=== PATIENT | female | born 2000 | race Two or more races ===

== ENCOUNTER 2018-07-29 19:24 | Emergency (ER) | payer OTHER ==
[2018-07-29 19:42] VITALS: BP 123/73
--- NOTE | 2018-07-29 19:51 | UC ---
Ear Complaint HPI - HPI Summary HPI Summary: 17 y/o female presents to the urgent care c/o B/L ear pain since this afternoon around 1530 pm when she went swimming. Pt reports she went into the water and she immediately to the felt pain. Pt is 6/10 w/o any radiation. She took a Tylenol about 2hrs ago w/o any improvement. Pt denies fever, dizziness, decrease hearing, SOB, URI, chest pain,abdominal pain, N/V/D. Pt is PCN and cephalosporins allergic. Pt is UTD w/ all vaccines for her age. - History of Current Complaint Chief Complaint: UCEar Stated Complaint: EAR PAIN Time Seen by Provider: 07/29/18 19:49 Hx Obtained From: Patient Hx Last Menstrual Period: 07/22/2018 ?: No Onset/Duration: Gradual Onset, Lasting Days - 1 day, Still Present Severity Initially: Moderate Severity Currently: Moderate Pain Intensity: 6 Pain Scale Used: 0-10 Numeric Aggravating Factors: Nothing Alleviating Factors: OTC Meds Associated Signs/Symptoms: Negative: Discharge, Hearing Loss, Foreign Body Sensation, Swelling @ - Allergies/Home Medications Allergies/Adverse Reactions: Allergies Allergy/AdvReac Type Severity Reaction Status Date / Time Cephalosporins Allergy Anaphylatic Verified 07/29/18 19:36 Shock Penicillins Allergy Anaphylatic Verified 07/29/18 19:36 Shock Home Medications: Home Medications Acetaminophen TAB* [Tylenol TAB*] 650 mg PO Q8HR PRN 07/29/18 [History Confirmed 07/29/18] Bcp 1 tab PO DAILY 07/29/18 [History] PMH/Surg Hx/FS Hx/Imm Hx Previously Healthy: Yes - Pt denies PMHX - Surgical History Surgical History: Yes Surgery Procedure, Year, and Place: Fallopian tumor removal 2010. leg lengthening surgery 2010 - Family History Known Family History: Positive: None - Pt denies FMHX - Social History Occupation: Student Lives: With Family Alcohol Use: Weekly Substance Use Type: None Smoking Status (MU): Never Smoked Tobacco - Immunization History Vaccination Up to Date: Yes Review of Systems Constitutional: Negative Skin: Negative Eyes: Negative ENT: Negative, Ear Ache - B/L ear pain Respiratory: Negative Cardiovascular: Negative Gastrointestinal: Negative Genitourinary: Negative Motor: Negative Neurovascular: Negative Musculoskeletal: Negative Neurological: Negative Psychological: Negative Is Patient Immunocompromised?: No All Other Systems Reviewed And Are Negative: Yes Physical Exam - Summary Physical Exam Summary: Vital signs: reviewed General: well developed, well nourished female adoelscent sitting in the examining table w/o any apparent distress Skin: [place], warm and dry, no evidence of atopic dermatitis, psoriasis, seborrhea. HEENT: -Head: atraumatic, non tender; no scalp dermatitis. -Eyes: sclera and conjunctiva clear, PERRLA, EOMI -Ears: no pre- or postauricular lymphadenopathy or erythema; B/L external ear canals clear. B?L TM injected w/ erythema and Rt w/ yellowish discharge, No perforation. -Nose/Face: erythematous and edematous nasal mucosa with clear rhinorrhea, no frontal or maxillary sinus tender to palpation. -Mouth/Throat: Mucous membrane moist, posterior pharynx clear, no erythema or exudates. Neck: supple, FROM, nontender, no lymphadenopathy, no meningismus. Chest: Clear to auscultation, normal breath sounds Abd: soft, Bowel sounds active, Nontender. Back: no spinal or CVAT Neuro: A&O x4, GCS 15, no focal neuro deficits, normal behavior for age. Triage Information Reviewed: Yes Vital Signs: Initial Vital Signs Temp 97.9 F 07/29/18 19:35 Pulse 99 07/29/18 19:35 Resp 18 07/29/18 19:35 BP 123/73 07/29/18 19:35 Pulse Ox 99 07/29/18 19:35 Ear Complaint Course/Dx - Course Course Of Treatment: 17 y/o female presents to the urgent care c/o B/L ear pain since this afternoon around 1530 pm when she went swimming. Pt reports she went into the water and she immediately to the felt pain. Pt is 6/10 w/o any radiation. She took a Tylenol about 2hrs ago w/o any improvement. Pt denies fever, dizziness, decrease hearing, SOB, URI, chest pain,abdominal pain, N/V/D. Pt is PCN and cephalosporins allergic. Pt is UTD w/ all vaccines for her age. Hx obtained. Pt w/ B/L otitis media on examination. Pt PCN allergic. Pt given first dose of Azitromycin PO and Ibuprofen PO at the clinic to alleviate symptoms. pt tolerated well medication. Same medications sent to pharmacy. Pt advised if not improvement of symptoms in 2-3 days to return to the clinic or f/ u w/ her PCP for further treatment. Pt understood and agreed w/ plan of care. - Differential Dx/Diagnosis Differential Diagnosis/HQI/PQRI: Cerumen Impaction, Otitis Externa, Otitis Media , Perforated TM, URI Provider Diagnoses: 1- B/L otitis media. 2- Otalgia Discharge - Sign-Out/Discharge Documenting (check all that apply): Patient Departure - D/c home All imaging exams completed and their final reports reviewed: No Studies - Discharge Plan Condition: Stable Disposition: HOME Prescriptions: Azithromycin TAB* [Zithromax TAB (Z-ROCCO) 250 mg #6 tabs] 250 mg PO DAILY #4 tab Ibuprofen TAB* [Motrin TAB* 600 MG] 600 mg PO Q6H PRN #30 tab PRN Reason: otalgia Patient Education Materials: Ear Infection (ED) Referrals: [facility] [Outside] Additional Instructions: 1- Please take the full course of the antibiotic to avoid resistance. First dose given tonight at the cli 2-Please take ibuprofen PO q6-8hrs prn as instructed after meals to alleviate pain and swelling. Increase fluid intake, eat well, rest and avoid strenuous exercise 3-If symptoms do not improve or worsen please return to the urgent care or f/u with your PCP in 2 days for further evaluation and treatment. - Billing Disposition and Condition Condition: STABLE Disposition: Home
[2018-07-29] MEDS ORDERED: Azithromycin TAB* 250 MG PO ONE (20:13)
[2018-07-29] MEDS ORDERED: Ibuprofen TAB* 600 MG PO ONE (20:14)
== END 2018-07-29 20:30 | disposition home or self-care (01) ==
LOC: UCEAST 19:24
DX: H66.93 Otitis media, unspecified, bilateral (principal); Z88.1 Allergy status to other antibiotic agents; Z88.0 Allergy status to penicillin
CPT/HCPCS: 99202; A9270-GY; G0463

== ENCOUNTER 2020-01-10 11:16 | Emergency (ER) | payer OTHER ==
--- OUTSIDE RECORDS SUMMARY | 2020-01-10 11:41 | XMS REPORT | Continuity of Care Document ---
:2000 Author Organization [facility] Address [address] [facility] [address] [place] [address] Phone Care Team Providers Name Role Phone Bree Jarrett MD Unavailable Unavailable Allergies, Adverse Reactions, Alerts Substance Reaction Status PENICILLIN rash on face Active Medications Medication Instructions Dosage Effective Dates Status Comments (start - stop) Ikettarmando (28) take 1 tablet by 1.00 tablet - Active !! 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 [address] [facility] Womens Electric Arc Welder [address] [facility], At [facility] [address], [address], , [place], [place], [address], [place], [address], [place]. [place] tel: tel:[phone] PREV VISIT [facility] Pelvic and Regard Referring EST AGE [facility] perineal [address]. Provider: 18-39 Health Womens Electric Arc Welder painDysmenorrheaC 9 40 [facility], At [facility] Regard, [address] [facility] unspecified [address] [facility] [address], [address], [address], painOral , [place], [place], [place], [place]ptive [address], [place], [address]. [place], [address], [place]. tel: [place] surveillanceEncnt tel: [phone] tel:[phone] r for obstetrics gynecology physician exam [id number] (general) (routine) w/o abn findingsInfarctio n, fallopian tube Family History Family Member Diagnosis Age At Onset No information Immunizations Vaccine Date Status Comments No information Payers Payer name Insurance type Covered green party ID Authorization(s) AETNA PPO CI [id number] Social History Type Description Quantity Date Captured Comments Alcohol Use Details Unknown Caffeine Use Details Unknown Tobacco Use Status Unknown Smoking Status Unknown Sex Female Vital Signs Date / Height Weight BMI Pulse Blood Temperature Respiratory Body Head BMI Pulse Inhaled Time: Rate Pressure Rate Surface Circumference percentile Ox Ox Area No information Chief Complaint And Reason For Visit No information Reason For Referral Reason For Referral No information Plan Of Treatment Date Type Action Status No information History Of Present Illness Encounter Date Complaint History Of Present Illness No information Functional Status Date Functional Assessment No information Medications Administered Medication Instructions Dosage Effective Dates (start - stop) Status Comments No information Instructions Date Instruction Additional Information No information Assessments Type Assessment Date No information Goals Health Concern Goal Type Priority Status Date No information Medical Equipment Description Device [place] Device Identifier Effective Dates (start - stop ) Status No information Mental Status Date Cognitive Assessment No information Health Concerns Observation Date No information Concern Status Date No information
--- OUTSIDE RECORDS SUMMARY | 2020-01-10 11:41 | XMS REPORT | Continuity of Care Document ---
:2000 Author Organization [facility] Address [address] [facility] [address] [place] [address] Phone Care Team Providers Name Role Phone Bree Jarrett MD Unavailable Unavailable Allergies, Adverse Reactions, Alerts Substance Reaction Status PENICILLIN rash on face Active Medications Medication Instructions Dosage Effective Dates Status Comments (start - stop) Ikettarmando (28) take 1 tablet by 1.00 tablet - Active !! 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 [facility] Womens Retirement Plan Counselor 9 [address] [facility], At [facility] [address], [address], , [place], [place], [address], [place], [address], [place]. [place] tel: tel:[phone] PREV VISIT [facility]vic and Regard Referring EST AGE [facility] perineal [address]. Provider: 18-39 Health Womens Retirement Plan Counselor painDysmenorrheaC 9 40 [facility], At [facility] [place], [facility] Regard, [address] [facility] unspecified [address] [facility] [address], [address], [address], [place]Oral , [place], [place], [place], [place] [address], [place], [address]. [place], [address], pill [place]. tel: [place] surveillanceEncnt tel: [phone] tel:[phone] r for sales performance manager exam [id number] (general) (routine) w/o abn findingsInfarctio n, fallopian tube Family History Family Member Diagnosis Age At Onset No information Immunizations Vaccine Date Status Comments No information Payers Payer name Insurance type Covered democrat ID Authorization(s) AETNA PPO CI [id number] Social History Type Description Quantity Date Captured [...] Date No information Medical Equipment Description Device [place] Device Identifier Effective Dates (start - stop ) Status No information Mental Status Date Cognitive Assessment No information Health Concerns Observation Date No information Concern Status Date No information
--- OUTSIDE RECORDS SUMMARY | 2020-01-10 11:41 | XMS REPORT | Continuity of Care Document ---
:2000 Author Organization [facility] Address [address] [facility] [address] [place] [address] Phone Care Team Providers Name Role Phone Regard Bree SPENCER Unavailable Unavailable Allergies, Adverse Reactions, Alerts Substance Reaction Status PENICILLIN rash on face Active Medications Medication Instructions Dosage Effective Dates Status Comments (start - stop) Ikettarmando (28) take 1 tablet by 1.00 tablet - Active !! 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 [facility] Womens Oiler Bander [address] [facility], At [facility] [address], [address], , [place], [place], [address], [place], [address], [place]. [place] tel: tel:[phone] PREV VISIT [facility] Regard Referring EST AGE [facility] perineal [address]. Provider: 18-39 Health Womens Oiler Bander painDysmenorrheaC 9 40 [facility], At [facility] Regard, [address] [facility] unspecified [address] [facility] [address], [address], [address], [place]Oral , [place], [place], [place], [place] [address], [place], [address]. [place], [address], pill [place]. tel: [place] surveillanceEncnt tel: [phone] tel:[phone] r for reroller hand exam [id number] (general) (routine) w/o abn findingsInfarctio n, fallopian tube Family History Family Member Diagnosis Age At Onset No information Immunizations Vaccine Date Status Comments No information Payers Payer name Insurance type Covered alliance party ID Authorization(s) AETNA PPO CI [id number] Social History Type Description Quantity Date Captured Comments Sex Female Vital Signs Date / Height [...] Date No information Medical Equipment Description Device [place] Device Identifier Effective Dates (start - stop ) Status No information Mental Status Date Cognitive Assessment No information Health Concerns Observation Date No information Concern Status Date No information
--- OUTSIDE RECORDS SUMMARY | 2020-01-10 11:41 | XMS REPORT | Continuity of Care Document ---
:2000 Author Organization [facility] Address [address] [facility] [address] [place] [address] Phone Care Team Providers Name Role Phone Regard Bree SPENCER Unavailable Unavailable Allergies, Adverse Reactions, Alerts Substance Reaction Status PENICILLIN rash on face Active Medications Medication Instructions Dosage Effective Dates Status Comments (start - stop) Mirjoanntte (28) take 1 tablet by 1.00 tablet - Active !! 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 [facility] Womens Sheep Farmer 9 [address] [facility], At [facility] [address], [address], , [place], [place], [address], [place], [address], [place]. [place] tel: tel:[phone] PREV VISIT [facility] Pelvic and Regard Referring EST AGE [facility] perineal [address]. Provider: 18-39 Health Womens Sheep Farmer painDysmenorrheaC 9 40 [facility], At [facility] Regard, [address] [facility] unspecified [address] [facility] [address], [address], [address], [place]Oral , [place], [place], [place], [place] [address], [place], [address]. [place], [address], pill [place]. tel: [place] surveillanceEncnt tel: [phone] tel:[phone] r for nurse obgyn exam [phone] [id number] (general) (routine) w/o abn findingsInfarctio n, fallopian tube Family History Family Member Diagnosis Age At Onset No information Immunizations Vaccine Date Status Comments No information Payers Payer name Insurance type Covered green party ID Authorization(s) AETNA PPO CI [id number] Social History Type Description Quantity Date Captured [...] Date No information Medical Equipment Description Device [place] Device Identifier Effective Dates (start - stop ) Status No information Mental Status Date Cognitive Assessment No information Health Concerns Observation Date No information Concern Status Date No information
[2020-01-10 12:56] LABS: Influenza A Molecular Negative (Negative); Influenza B Molecular Negative (Negative)
[2020-01-10] MEDS ORDERED: Acetaminophen TAB* 325 MG PO ONE (14:11)
--- NOTE | 2020-01-10 14:19 | ED ---
HPI Febrile Illness - HPI Summary HPI Summary: This pt is a 19 Y/O F presenting to [facility] with a CC of a fever that was 105 F that began on 01/09/2020 at 1300. She states that she only has a sore throat to accompany the fever. She denies any ear pain, headaches, rhinorrhea, abdominal pain, N/V, neck pain, chest pain, and myalgia. She states that she has no aggravating or alleviating factors. She has a PMHx of a benign tumor removal. - History of Current Complaint Chief Complaint: EDFluSymptoms Time Seen by Provider: 01/10/20 13:46 Hx Obtained From: Patient Hx Last Menstrual Period: 07/22/2018 Onset/Duration: Started Days Ago - 1 Time of Onset: 13:00 Timing: Constant Temperature: 105 F Initial Severity: Mild Current Severity: Mild Pain Intensity: 3 Pain Scale Used: 0-10 Numeric Aggravating Factors: Nothing Alleviating Factors: Nothing Associated Signs and Symptoms: Negative - ear pain, headaches, rhinorrhea, abdominal pain, N/V, neck pain, chest pain, and myalgia., Sore Throat - Allergy/Home Medications Allergies/Adverse Reactions: Allergies Allergy/AdvReac Type Severity Reaction Status Date / Time Cephalosporins Allergy Anaphylatic Verified 01/10/20 11:32 Shock Penicillins Allergy Anaphylatic Verified 01/10/20 11:32 Shock Home Medications: Home Medications Acetaminophen TAB* [Tylenol TAB*] 650 mg PO Q8HR PRN 07/29/18 [History Confirmed 07/29/18] Azithromycin TAB* [Zithromax TAB (Z-ROCCO) 250 mg #6 tabs] 250 mg PO DAILY #4 tab 07/29/18 [Rx] Bcp 1 tab PO DAILY 07/29/18 [History] Ibuprofen TAB* [Motrin TAB* 600 MG] 600 mg PO Q6H PRN #30 tab 07/29/18 [Rx] Azithromycin TAB* [Zithromax TAB (Z-ROCCO) 250 mg #6 tabs] 250 mg PO DAILY #4 tab 01/10/20 [Rx] PMH/Surg Hx/FS Hx/Imm Hx Previously Healthy: Yes Endocrine/Hematology History: Denies: Hx Diabetes Cardiovascular History: Denies: Hx Congenital Heart Disease - Cancer History Hx Chemotherapy: No Hx Radiation Therapy: No - Surgical History Surgical History: Yes Surgery Procedure, Year, and Place: Fallopian tumor removal 2010. leg lengthening surgery 2010 - Immunization History Immunizations Up to Date: Yes Infectious Disease History: No Infectious Disease History: Denies: Traveled Outside the [place] in Last 30 Days - Family History Known Family History: Negative: Cardiac Disease, Diabetes - Social History Occupation: Student - [employer] Lives: Dormitory/Roommates Alcohol Use: Occasionally Hx Substance Use: No Substance Use Type: Reports: None Hx Tobacco Use: No Smoking Status (MU): Never Smoked Tobacco Review of Systems Positive: Fever - 105 F. Negative: Chills Positive: Sore Throat. Negative: Ear Ache, Nasal Discharge Negative: Chest Pain Negative: Abdominal Pain, Vomiting, Nausea Musculoskeletal: Negative - neck pain Negative: Myalgia Negative: Headache All Other Systems Reviewed And Are Negative: Yes Physical Exam - Summary Physical Exam Summary: VITAL SIGNS: Reviewed. GENERAL: Patient is a well-developed and nourished female who is lying comfortable in the stretcher. Patient is not in any acute respiratory distress. HEAD AND FACE: No signs of trauma. No ecchymosis, hematomas or skull depressions. No sinus tenderness. EYES: PERRLA, EOMI x 2, No injected conjunctiva, no nystagmus. EARS: Hearing grossly intact. Ear canals and tympanic membranes are within normal limits. MOUTH: Oropharynx within normal limits. NECK: Supple, trachea is midline, no JVD, no carotid bruit, no c-spine tenderness, neck with full ROM. She has yellow-white discharge on both tonsils but more on the R than the left. CHEST: Symmetric, no tenderness at palpation. LUNGS: Clear to auscultation bilaterally. No wheezing or crackles. CVS: Regular rate and rhythm, S1 and S2 present, no murmurs or gallops appreciated. ABDOMEN: Soft, non-tender. No signs of distention. No rebound, no guarding, and no masses palpated. Bowel sounds are normal. EXTREMITIES: FROM in all major joints, no edema, no cyanosis or clubbing. NEURO: Alert and oriented x 3. No acute neurological deficits. Speech is normal and follows commands. SKIN: Dry and warm. Triage Information Reviewed: Yes Vital Signs On Initial Exam: Initial Vitals Temp Pulse Resp BP Pulse Ox 102.1 F 123 16 108/80 97 01/10/20 11:28 01/10/20 11:28 01/10/20 11:28 01/10/20 11:28 01/10/20 11:28 Vital Signs Reviewed: Yes Procedures - Sedation Patient Received Moderate/Deep Sedation with Procedure: No Diagnostics - Vital Signs Vital Signs Temp Pulse Resp BP Pulse Ox 01/10/20 11:28 102.1 F 123 16 108/80 97 - Laboratory Lab Results: Lab Results 01/10/20 Range/Units 11:58 Influenza A (Rapid) Negative (Negative) Influenza B (Rapid) Negative (Negative) Lab Statement: Any lab studies that have been ordered have been reviewed, and results considered in the medical decision making process. Course/Dx - Course Assessment/Plan: This pt is a 19 Y/O F presenting to [facility] with a CC of a fever that was 105 F that began on 01/09/2020 at 1300. She states that she only has a sore throat to accompany the fever. She denies any ear pain, headaches, rhinorrhea, abdominal pain, N/V, neck pain, chest pain, and myalgia. She states that she has no aggravating or alleviating factors. She has a PMHx of a benign tumor removal. In the physical exam the patient has tonsillar discharge, vomiting for the patient has pharyngitis and tonsillitis. Influenza A and B is negative, rapid strep is negative. [place] screen was negative. However I believe that the patient still has bacterial pharyngitis therefore the patient was given azithromycin. Patient doesnt have any trismus, denies any airway compromise, any swelling of the tongue or lips. Therefore the patient will be discharged home with follow-up with PCP. The patient is hemodynamically stable alert and oriented 3. - Diagnoses Provider Diagnoses: Pharyngitis Discharge ED - Sign-Out/Discharge Documenting (check all that apply): Patient Departure - discharge - Discharge Plan Condition: Good Disposition: HOME Prescriptions: Azithromycin TAB* [Zithromax TAB (Z-ROCCO) 250 mg #6 tabs] 250 mg PO DAILY #4 tab Patient Education Materials: Strep Throat (ED) Referrals: [facility] - Jacky VALADEZ [Primary Care Provider] - 2 Days Additional Instructions: PLEASE FOLLOW UP WITH [facility] IN 1-3 DAYS AND RETURN TO THE EMERGENCY DEPARTMENT FOR ANY NEW OR WORSENING SYMPTOMS. Please take all medications as prescribed and for the directed length. - Billing Disposition and Condition Condition: GOOD Disposition: Home - Attestation Statements Document Initiated by Scribe: Yes Documenting Scribe: Rachid Concepcion Provider For Whom Scribe is Documenting (Include Credential): Luis Mcgarry MD Scribe Attestation: Rachid Gutierrez, scribed for Luis Mcgarry MD on 01/10/20 at 1828. Scribe Documentation Reviewed: Yes Provider Attestation: The documentation as recorded by the Rachid june accurately reflects the service I personally performed and the decisions made by , Luis Mcgarry MD Status of Scribe Document: Viewed
[2020-01-10 14:35] LABS: Rapid Strep Molecular Negative (Negative)
[2020-01-10] MEDS ORDERED: Azithromycin TAB* 250 MG PO ONE (15:25)
[2020-01-10 15:53] VITALS: BP 97/67
== END 2020-01-10 15:51 | disposition home or self-care (01) ==
LOC: ED 11:16
DX: J02.9 Acute pharyngitis, unspecified (principal); Z88.0 Allergy status to penicillin; Z88.1 Allergy status to other antibiotic agents
CPT/HCPCS: 36415; 86308; 86663; 87651; 99282; A9270-GY